=== PATIENT | female | born 1955 | race Two or more races ===

== ENCOUNTER 2020-11-20 14:35 | Inpatient (IN) | payer OTHER ==
[~2020-11-20] VITALS: Ht 157.5 cm; Wt 73.0 kg
[2020-11-20] MEDS ORDERED: SODIUM CHLORIDE 0.9% 1,000 ML IV ONE (16:45)
[2020-11-20] MEDS ORDERED: ACETAMINOPHEN 325 MG TAB PO ONE (16:45)
[2020-11-20 18:32] LABS: Basophils # (auto) 0.1 10 ^3/uL (0-0.2); Basophils % (auto) 0.4 % (0.0-2.0); Eosinophils # (auto) 0 10 ^3/uL (0-0.8); Hematocrit 41.3 % (36.0-46.0); Lymphocytes # (auto) 1.9 10 ^3/uL (0.4-5.4); Mean Corpuscular Hemoglobin 27.6 pg (28.0-32.0); Mean Corpuscular Hgb Conc. 33.9 g/dL (32.0-36.0); Mean Corpuscular Volume 81.5 fL (80.0-100.0); Monocytes # (auto) 0.9 10 ^3/uL (0-1.3); Monocytes % (auto) 4.6 % (0.0-12.0); Neutrophils # (auto) 15.9 10 ^3/uL (1.6-8.6); Nucleated Red Blood Cells % 0.1 %; Platelet Count (auto) 302 10^3/uL (140-450); Red Blood Cells 5.07 10^6/uL (4.0-5.20); Red Cell Distribution Width 13.9 % (11.8-14.3); White Blood Cell 18.8 10^3/uL (4.4-10.8)
[2020-11-20 18:33] LABS: Urine Bacteria FEW /hpf (None Seen); Urine Blood 2+ /uL (Negative); Urine Specific Gravity 1.034 (1.001-1.035); Urine WBC 104 /hpf (0 - 5); Urine WBC Clumps PRESENT /hpf (None Seen)
[2020-11-20 18:42] LABS: Albumin 3.8 g/dL (3.4-5.0); Calcium 9.3 mg/dL (8.5-10.1); Potassium 4.1 mmol/L (3.5-5.1)
[2020-11-20 18:45] LABS: Bilirubin, Total 0.5 mg/dL (0.2-1.0)
[2020-11-20] MEDS ORDERED: cefTRIAXone 1GM/50ML D5W 50 ML IV ONE (18:45)
[2020-11-20] MEDS ORDERED: DEXTROSE (50%) 50ML SYRG IV PRN (21:00)
[2020-11-20] MEDS: SODIUM CHLORIDE 0.9% 1,000 ML IV SCH (21:20)
[2020-11-20] MEDS: ATORVASTATIN 20 MG TAB PO SCH (21:33)
[2020-11-20] MEDS: ONDANSETRON HCL 4 MG/2 ML VIAL IV PRN (21:33)
[2020-11-20] MEDS: FAMOTIDINE 20 MG TAB PO SCH (21:33)
[2020-11-20] MEDS: HYDROcodone-ACET 5/325MG TAB PO PRN (21:34)
[2020-11-20 22:56] VITALS: BP 117/74
[2020-11-21] MEDS ORDERED: SITA50TA28 PO (01:02)
[2020-11-21] MEDS ORDERED: GLIP10TA9 PO (01:02)
[2020-11-21] MEDS ORDERED: GEMF600T7 PO (01:02)
[2020-11-21] MEDS ORDERED: INSUINJ37 SC (01:05)
[2020-11-21] MEDS: HYDROcodone-ACET 5/325MG TAB PO PRN ×2 (02:31→11:08)
[2020-11-21] MEDS: ACCU-CHEK COMFORT CURVE STRIP VI SCH ×6 (02:41→20:25)
[2020-11-21] MEDS: InsuLIN REG 1unit/0.01ml Soln (100units/ml) SC SCH ×6 (02:57→20:33)
[2020-11-21 05:00] VITALS: BP 122/67
[2020-11-21 07:37] LABS: Basophils # (auto) 0 10 ^3/uL (0-0.2); Basophils % (auto) 0.2 % (0.0-2.0); Eosinophils # (auto) 0 10 ^3/uL (0-0.8); Eosinophils % (auto) 0.1 % (0.0-7.0); Hematocrit 36.7 % (36.0-46.0); Hemoglobin 12.3 g/dL (12.2-16.2); Lymphocytes # (auto) 2.2 10 ^3/uL (0.4-5.4); Lymphocytes % (auto) 13.3 % (10.0-50.0); Mean Corpuscular Hemoglobin 27.4 pg (28.0-32.0); Mean Corpuscular Hgb Conc. 33.5 g/dL (32.0-36.0); Mean Corpuscular Volume 81.6 fL (80.0-100.0); Monocytes # (auto) 0.9 10 ^3/uL (0-1.3); Monocytes % (auto) 5.4 % (0.0-12.0); Neutrophils # (auto) 13.2 10 ^3/uL (1.6-8.6); Platelet Count (auto) 282 10^3/uL (140-450); Red Cell Distribution Width 13.9 % (11.8-14.3); White Blood Cell 16.3 10^3/uL (4.4-10.8)
[2020-11-21 08:02] LABS: Potassium 3.9 mmol/L (3.5-5.1)
[2020-11-21 08:06] LABS: BUN/Creatinine Ratio 17.9; Calcium 8.7 mg/dL (8.5-10.1)
[2020-11-21] MEDS: cefTRIAXone 1GM/50ML D5W 50 ML IV SCH (08:44)
[2020-11-21] MEDS: FAMOTIDINE 20 MG TAB PO SCH (08:44)
[2020-11-21 09:00] VITALS: BP 128/67
[2020-11-21] MEDS: SODIUM CHLORIDE 0.9% 1,000 ML IV SCH ×2 (10:20→17:27)
[2020-11-21 13:00] VITALS: BP 154/77
[2020-11-21] MEDS ORDERED: INSULIN LANTUS (GLARGINE) 1 /0.01ml (100units/ml) SC ONE (14:00)
[2020-11-21] MEDS ORDERED: ESOMEPRAZOLE 40 MG/5ml VIAL INJ IV ONE (16:45)
[2020-11-21] MEDS: ESOMEPRAZOLE 40 MG/5ml VIAL INJ IV SCH (17:19)
[2020-11-21] MEDS: ACETAMINOPHEN 325 MG TAB PO PRN (17:28)
[2020-11-21 17:36] VITALS: BP 168/90
[2020-11-21 22:00] VITALS: BP 123/59
[2020-11-21] MEDS: ATORVASTATIN 20 MG TAB PO SCH (23:16)
[2020-11-21] MEDS: INSULIN LANTUS (GLARGINE) 1 /0.01ml (100units/ml) SC SCH (23:18)
[2020-11-22] MEDS: ACCU-CHEK COMFORT CURVE STRIP VI SCH ×6 (00:29→22:00)
[2020-11-22] MEDS: InsuLIN REG 1unit/0.01ml Soln (100units/ml) SC SCH ×6 (00:39→23:39)
[2020-11-22 05:00] VITALS: BP 148/89
[2020-11-22] MEDS: SIMETHICONE 80 MG CHEWABLE TABLET PO PRN ×2 (05:00→20:30)
[2020-11-22] MEDS: HYDROcodone-ACET 5/325MG TAB PO PRN ×2 (05:00→20:29)
[2020-11-22 06:13] LABS: Basophils # (auto) 0 10 ^3/uL (0-0.2); Basophils % (auto) 0.3 % (0.0-2.0); Eosinophils # (auto) 0 10 ^3/uL (0-0.8); Eosinophils % (auto) 0.2 % (0.0-7.0); Hematocrit 35.3 % (36.0-46.0); Lymphocytes # (auto) 2.2 10 ^3/uL (0.4-5.4); Mean Corpuscular Hemoglobin 27.7 pg (28.0-32.0); Mean Corpuscular Hgb Conc. 34.1 g/dL (32.0-36.0); Monocytes # (auto) 0.8 10 ^3/uL (0-1.3); Monocytes % (auto) 5.5 % (0.0-12.0); Neutrophils # (auto) 11.6 10 ^3/uL (1.6-8.6); Nucleated Red Blood Cells % 0.1 %; Platelet Count (auto) 269 10^3/uL (140-450); Red Blood Cells 4.36 10^6/uL (4.0-5.20); Red Cell Distribution Width 13.6 % (11.8-14.3); White Blood Cell 14.7 10^3/uL (4.4-10.8)
[2020-11-22 06:35] LABS: BUN/Creatinine Ratio 15.1; Calcium 8.2 mg/dL (8.5-10.1); Potassium 3.6 mmol/L (3.5-5.1)
[2020-11-22 09:07] VITALS: BP 114/69
[2020-11-22] MEDS: cefTRIAXone 1GM/50ML D5W 50 ML IV SCH (10:26)
[2020-11-22] MEDS: ESOMEPRAZOLE 40 MG/5ml VIAL INJ IV SCH ×2 (11:00→23:49)
[2020-11-22] MEDS ORDERED: DEXTROSE (50%) 50ML SYRG IV PRN (12:30)
[2020-11-22] MEDS ORDERED: ERTAPENEM SOD INJ 1 GM in SODIUM CHL 0.9% 50 ML IV ONE (12:30)
[2020-11-22 13:22] VITALS: BP 159/93
[2020-11-22] MEDS: SODIUM CHLORIDE 0.9% 1,000 ML IV SCH (13:56)
[2020-11-22 16:30] VITALS: BP 138/86
[2020-11-22] MEDS: ONDANSETRON HCL 4 MG/2 ML VIAL IV PRN (20:29)
[2020-11-22 22:00] VITALS: BP 163/96
[2020-11-22] MEDS: INSULIN LANTUS (GLARGINE) 1 /0.01ml (100units/ml) SC SCH (23:46)
[2020-11-22] MEDS: ATORVASTATIN 20 MG TAB PO SCH (23:47)
[2020-11-22] MEDS: DOCUSATE SOD 100 MG CAP PO SCH (23:50)
[2020-11-23] MEDS: SODIUM CHLORIDE 0.9% 1,000 ML IV SCH ×2 (02:20→17:38)
[2020-11-23] MEDS: ACETAMINOPHEN 325 MG TAB PO PRN ×3 (03:45→20:15)
[2020-11-23 05:00] VITALS: BP 125/82
[2020-11-23] MEDS: InsuLIN REG 1unit/0.01ml Soln (100units/ml) SC SCH ×4 (07:00→23:15)
[2020-11-23] MEDS: ACCU-CHEK COMFORT CURVE STRIP VI SCH ×4 (07:01→22:00)
[2020-11-23 07:14] LABS: Basophils # (auto) 0 10 ^3/uL (0-0.2); Basophils % (auto) 0.4 % (0.0-2.0); Eosinophils # (auto) 0.1 10 ^3/uL (0-0.8); Eosinophils % (auto) 0.9 % (0.0-7.0); Hematocrit 37.2 % (36.0-46.0); Hemoglobin 12.6 g/dL (12.2-16.2); Lymphocytes # (auto) 2.3 10 ^3/uL (0.4-5.4); Lymphocytes % (auto) 19.9 % (10.0-50.0); Mean Corpuscular Hemoglobin 27.7 pg (28.0-32.0); Mean Corpuscular Volume 81.5 fL (80.0-100.0); Monocytes # (auto) 0.8 10 ^3/uL (0-1.3); Monocytes % (auto) 7.2 % (0.0-12.0); Neutrophils # (auto) 8.3 10 ^3/uL (1.6-8.6); Neutrophils % (auto) 71.6 % (37.0-80.0); Nucleated Red Blood Cells % 0.1 %; Platelet Count (auto) 312 10^3/uL (140-450); Red Blood Cells 4.56 10^6/uL (4.0-5.20); Red Cell Distribution Width 13.6 % (11.8-14.3); White Blood Cell 11.6 10^3/uL (4.4-10.8)
[2020-11-23 07:32] LABS: Potassium 4.2 mmol/L (3.5-5.1)
[2020-11-23 07:42] LABS: BUN/Creatinine Ratio 11.1; Calcium 8.9 mg/dL (8.5-10.1)
[2020-11-23 09:00] VITALS: BP 120/72
[2020-11-23] MEDS: ERTAPENEM SOD INJ 1 GM in SODIUM CHL 0.9% 50 ML IV SCH (10:03)
[2020-11-23] MEDS: DOCUSATE SOD 100 MG CAP PO SCH ×2 (10:03→22:00)
[2020-11-23] MEDS: HYDROcodone-ACET 5/325MG TAB PO PRN (10:46)
[2020-11-23] MEDS ORDERED: LACTULOSE 20Gm/30ML SOLN PO ONE ×2 (11:30→23:45)
[2020-11-23] MEDS ORDERED: DOCUSATE SOD 100 MG CAP PO ONE (11:30)
[2020-11-23 12:58] VITALS: BP 138/77
[2020-11-23 17:00] VITALS: BP 153/94
[2020-11-23 22:00] VITALS: BP 137/88
[2020-11-23] MEDS: ATORVASTATIN 20 MG TAB PO SCH (22:00)
[2020-11-23] MEDS: INSULIN LANTUS (GLARGINE) 1 /0.01ml (100units/ml) SC SCH (23:16)
[2020-11-24 05:00] VITALS: BP_SYST 117; BP_SYST 124; BP_DIAS 55; BP_DIAS 84
[2020-11-24] MEDS: ACCU-CHEK COMFORT CURVE STRIP VI SCH ×4 (05:59→21:16)
[2020-11-24] MEDS: SODIUM CHLORIDE 0.9% 1,000 ML IV SCH ×2 (05:59→18:20)
[2020-11-24] MEDS: InsuLIN REG 1unit/0.01ml Soln (100units/ml) SC SCH ×4 (06:19→21:38)
[2020-11-24 06:34] LABS: Basophils # (auto) 0 10 ^3/uL (0-0.2); Basophils % (auto) 0.4 % (0.0-2.0); Eosinophils # (auto) 0 10 ^3/uL (0-0.8); Eosinophils % (auto) 0.5 % (0.0-7.0); Lymphocytes # (auto) 1.4 10 ^3/uL (0.4-5.4); Lymphocytes % (auto) 12.8 % (10.0-50.0); Mean Corpuscular Hemoglobin 27.8 pg (28.0-32.0); Mean Corpuscular Hgb Conc. 34.2 g/dL (32.0-36.0); Mean Corpuscular Volume 81.3 fL (80.0-100.0); Monocytes % (auto) 9.6 % (0.0-12.0); Neutrophils # (auto) 8.2 10 ^3/uL (1.6-8.6); Neutrophils % (auto) 76.7 % (37.0-80.0); Nucleated Red Blood Cells % 0.3 %; Platelet Count (auto) 293 10^3/uL (140-450); Red Blood Cells 4.31 10^6/uL (4.0-5.20); Red Cell Distribution Width 13.5 % (11.8-14.3); White Blood Cell 10.7 10^3/uL (4.4-10.8)
[2020-11-24 09:00] VITALS: BP 151/90
[2020-11-24] MEDS: ESOMEPRAZOLE 40 MG/5ml VIAL INJ IV SCH (09:50)
[2020-11-24] MEDS: ERTAPENEM SOD INJ 1 GM in SODIUM CHL 0.9% 50 ML IV SCH (09:50)
[2020-11-24] MEDS: DOCUSATE SOD 100 MG CAP PO SCH ×2 (09:51→21:15)
[2020-11-24 13:00] VITALS: BP 143/75
[2020-11-24] MEDS: metroNIDAZOLE 500MG/100ML 100 ML IV SCH ×2 (14:06→21:15)
[2020-11-24 17:00] VITALS: BP 142/73
[2020-11-24] MEDS: ATORVASTATIN 20 MG TAB PO SCH (21:16)
[2020-11-24] MEDS: INSULIN LANTUS (GLARGINE) 1 /0.01ml (100units/ml) SC SCH (21:38)
[2020-11-24 22:00] VITALS: BP 144/79
[2020-11-24] MEDS: TEMAZEPAM 15 MG CAP PO PRN (22:54)
[2020-11-25 04:42] VITALS: BP 147/78
[2020-11-25] MEDS: ACCU-CHEK COMFORT CURVE STRIP VI SCH ×4 (06:02→22:15)
[2020-11-25] MEDS: metroNIDAZOLE 500MG/100ML 100 ML IV SCH ×3 (06:02→22:14)
[2020-11-25] MEDS: InsuLIN REG 1unit/0.01ml Soln (100units/ml) SC SCH ×4 (06:15→22:40)
[2020-11-25 08:59] VITALS: BP 144/78
[2020-11-25] MEDS: ESOMEPRAZOLE 40 MG/5ml VIAL INJ IV SCH (09:25)
[2020-11-25] MEDS: cefTRIAXone 1GM/50ML D5W 50 ML IV SCH (09:25)
[2020-11-25] MEDS: SODIUM CHLORIDE 0.9% 1,000 ML IV SCH (09:26)
[2020-11-25] MEDS: DOCUSATE SOD 100 MG CAP PO SCH (09:26)
[2020-11-25 13:00] VITALS: BP 139/84
[2020-11-25 17:00] VITALS: BP 143/81
[2020-11-25 22:00] VITALS: BP 145/76
[2020-11-25] MEDS ORDERED: DOCUSATE SOD 100 MG CAP PO SCH (22:00)
[2020-11-25] MEDS: ATORVASTATIN 20 MG TAB PO SCH (22:14)
[2020-11-25] MEDS: TEMAZEPAM 15 MG CAP PO PRN (22:15)
[2020-11-25] MEDS: INSULIN LANTUS (GLARGINE) 1 /0.01ml (100units/ml) SC SCH (22:40)
[2020-11-26 05:00] VITALS: BP 139/91
[2020-11-26] MEDS: ACCU-CHEK COMFORT CURVE STRIP VI SCH (05:55)
[2020-11-26] MEDS: metroNIDAZOLE 500MG/100ML 100 ML IV SCH (05:55)
[2020-11-26] MEDS: InsuLIN REG 1unit/0.01ml Soln (100units/ml) SC SCH (06:09)
[2020-11-26] MEDS: cefTRIAXone 1GM/50ML D5W 50 ML IV SCH (08:36)
[2020-11-26 09:00] VITALS: BP 142/74
[2020-11-26] MEDS ORDERED: ASPI-231 PO (09:16)
[2020-11-26] MEDS ORDERED: LEVO-28 PO (09:16)
[2020-11-26] MEDS ORDERED: ATOR10TA52 PO (09:16)
[2020-11-26 10:10] VITALS: BP 142/74
== END 2020-11-26 11:00 | disposition home or self-care (01) | DRG 872 ==
LOC: ER 14:35 → OVERFLOW 21:00 → WEST WING 22:50
PROVIDERS: ADMIT Nurse Practitioner; ATTEND Internal Medicine
DX: A41.9 Sepsis, unspecified organism (principal); N10 Acute pyelonephritis; Z20.822 Contact with and (suspected) exposure to COVID-19; E11.8 Type 2 diabetes mellitus with unspecified complications; K56.41 Fecal impaction; N28.1 Cyst of kidney, acquired; Z98.891 History of uterine scar from previous surgery; Z79.899 Other long term (current) drug therapy; Z79.4 Long term (current) use of insulin
CPT/HCPCS: 36415; 74018; 74176; 74177; 80048; 80053; 81001; 82150; 82962; 83036; 83605; 83690; 85025; 87040; 87086; 87426; 93005; 96365; 96375; G0378; J0696; J1335; J1815; J2405; J3490